=== PATIENT | female | born 1960 | race Two or more races ===

== ENCOUNTER 2018-06-05 13:13 | Outpatient (CLI) | payer OTHER ==
[~2018-06-05 13:13] MED LIST: FORTAMET1000 MG; HUMULIN 70100 UNIT/2; METOPROLOL ER-1 EAC1
== END 2018-06-05 13:24 | disposition home or self-care (01) ==
LOC: NUCLEAR 13:13
DX: M81.0 Age-related osteoporosis without current pathological fracture (principal); E04.2 Nontoxic multinodular goiter; R59.0 Localized enlarged lymph nodes; I10 Essential (primary) hypertension

== ENCOUNTER 2021-10-24 17:20 | Emergency (ER) | payer OTHER ==
[~2021-10-24] VITALS: Ht 149.9 cm; Wt 68.0 kg
== END 2021-10-25 00:13 | disposition home or self-care (01) ==
LOC: ER 17:20
DX: J10.1 Influenza due to other identified influenza virus with other respiratory manifestations (principal); Z20.822 Contact with and (suspected) exposure to COVID-19; E11.9 Type 2 diabetes mellitus without complications; Z79.4 Long term (current) use of insulin; I10 Essential (primary) hypertension